=== PATIENT | male | born 1940 | race Caucasian/White ===

== ENCOUNTER → 2018-04-05 | Outpatient (CLI) | payer MEDICARE, BC ==
[~2018-04-05] MED LIST: ASPIR 8181 MG PO; ATORVASTATIN CA40 MG PO; COQ1050 MG PO; EFFEXOR 5050 MG/1 T1 PO; MAGNESIUM PO; NEURONTIN 300300 M1 PO; NORCO 5-325 TA1 EAC1 PO; OSTEO BI-FLEX1 EAC1 PO; PRINIVIL10 MG PO; PRO PO; TOPROL XL25 MG PO; VITAMIN B122500 MCG PO; VITAMIN D3400 UNIT PO; XANAX 0.25 MG0.25 MG PO; ZANTAC 150MG T150 MG PO; [UNRECOGNIZED DRUG - OTHER] PO; [UNRECOGNIZED DRUG - OTHER] PO
== END ==
LOC: M.ULTRA 13:44
DX: I82.411 Acute embolism and thrombosis of right femoral vein (principal); M79.89 Other specified soft tissue disorders

== ENCOUNTER 2021-01-31 05:49 | Emergency (ER) | payer OTHER, BC ==
[~2021-01-31] VITALS: Ht 185.4 cm; Wt 111.1 kg
[2021-01-31] MEDS ORDERED: NORVASC 2.5 MG2.5 M1 PO (06:10)
[2021-01-31] MEDS ORDERED: FLOMAX0.4 MG PO (06:11)
[2021-01-31] MEDS ORDERED: FISH OIL 1,0001 EAC9 PO (06:12)
[2021-01-31] MEDS ORDERED: GABAPENTIN600 M1 PO (06:12)
[2021-01-31] MEDS ORDERED: IMDUR 30 MG TAB30 M1 PO (06:13)
[2021-01-31] MEDS ORDERED: VITAMIN D31250 MCG PO (06:15)
[2021-01-31 06:39] LABS: URINE BILIRUBIN NEGATIVE (Negative); URINE BLOOD NEGATIVE (Negative); URINE CLARITY CLEAR; URINE COLOR YELLOW; URINE GLUCOSE-RANDOM NEGATIVE (Negative); URINE KETONES NEGATIVE (Negative); URINE LEUKOCYTES-REFLEX NEGATIVE (Negative); URINE NITRITE-REFLEX NEGATIVE (Negative); URINE PROTEIN NEGATIVE (Negative); URINE SPECIFIC GRAVITY >= 1.030 (1.005-1.030); URINE UROBILINOGEN 0.2 E.U./dl (0.2-1.0)
[2021-01-31 06:54] LABS: ABSOLUTE EOSINOPHILS 0.6 thou/uL (0.0-0.7); ABSOLUTE LYMPHOCYTES 1.7 thou/uL (0.8-5.3); ABSOLUTE MONOCYTES 0.7 thou/uL (0.0-1.2); ABSOLUTE NEUTROPHILS 4.1 thou/uL (1.6-8.1); BASOPHILS 0.6 %; EOSINOPHILS 8.8 %; HEMATOCRIT 39.9 % (42.0-52.0); HEMOGLOBIN 13.6 gm/dL (14.0-18.0); LYMPHOCYTES 23.9 %; MCH 34.8 pg (26.0-34.0); MCHC 34.2 g/dL (28.0-37.0); MCV 101.5 fL (80.0-100.0); MONOCYTES 9.9 %; MPV 9.7 fl. (7.2-11.1); NUCLEATED RBCS 0 /100WBC; PLATELET COUNT* 146 thou/uL (150-400); POLYS 56.8 %; RBC 3.93 mil/uL (4.50-6.00); RDW-CV 13.4 % (10.5-14.5); WBC 7.2 thou/uL (4.0-11.0)
[2021-01-31 07:26] LABS: CALCIUM 9.3 mg/dL (8.5-10.1); CREATININE 1.3 mg/dL (0.6-1.3); POTASSIUM 4.3 mmol/L (3.5-5.1)
[2021-01-31] MEDS ORDERED: FLEXERIL PO (08:30)
[2021-01-31] MEDS ORDERED: HYDROCODON-ACE1 EAC7 PO (08:30)
[2021-01-31 08:39] VITALS: BP 133/85
--- NOTE | 2021-02-01 11:44 | EKG ---
[place] [address] ELECTROCARDIOGRAM REPORT Name: CAPRICE PIZARRO Room: [facility]#: [id number] Admission: 01/31/21 Attend Phys: Discharge: 01/31/21 Date of : 44 Date of Service: 01/31/21612 Report #: [id number] THIS REPORT FOR: //name// [facility] ED Test Date: 2021-01-31 Test Time: 06:13:02 Pat Name: CAPRICE PIZARRO Department: Room: Gender: Overhead Distribution Engineer: KELECHI Smyth : 1940 Requested By: Lakeshia Live Order Number: [id number] MD: Herman Jones Measurements Intervals [place] Rate: 83 P: 42 [place]: 137 QRS: 7 QRSD: 112 T: 25 QT: 370 QTc: 435 Interpretive Statements Sinus rhythm Multiple premature complexes, supraven Incomplete right bundle branch block No previous ECG available for comparison Electronically Signed On 02-01-2021 11:43:52 CDT by Herman Jones [email or web address] <ELECTRONICALLY SIGNED> By: Herman Jones MD, [facility] 02/01/21 1143 0613 2 Herman Jones MD, [facility] /EPI
== END 2021-01-31 08:42 | disposition home or self-care (01) ==
LOC: M.ERS 05:49
PROVIDERS: Emergency Medicine
DX: S39.012A Strain of muscle, fascia and tendon of lower back, initial encounter (principal); X50.9XXA Other and unspecified overexertion or strenuous movements or postures, initial encounter; Y93.89 Activity, other specified; Y92.89 Other specified places as the place of occurrence of the external cause; Y99.8 Other external cause status

== ENCOUNTER 2021-07-03 12:27 | Emergency (ER) | payer OTHER, BC ==
[~2021-07-03] VITALS: Ht 185.4 cm; Wt 111.1 kg
[~2021-07-03 12:27] MED LIST changes: +FISH OIL 1,0001 EAC9 PO; +FLEXERIL PO; +FLOMAX0.4 MG PO; +GABAPENTIN600 M1 PO; +HYDROCODON-ACE1 EAC7 PO; +IMDUR 30 MG TAB30 M1 PO; +NORVASC 2.5 MG2.5 M1 PO; +VITAMIN D31250 MCG PO
[2021-07-03 12:30] VITALS: BP 143/80
--- NOTE | 2021-07-03 15:26 | EKG ---
[place] [address] ELECTROCARDIOGRAM REPORT Name: CAPRICE PIZARRO Room: [facility]#: [id number] Admission: 07/03/21 Attend Phys: Discharge: 07/03/21 Date of : 44 Date of Service: 07/03/21 1232 Report #: [id number] THIS REPORT FOR: //name// [facility] ED Test Date: 2021-07-03 Test Time: 12:32:27 Pat Name: CAPRICE PIZARRO Department: Room: Gender: Wheelchair Driver: ANJALI : 1940 Requested By: Rashid Conde Order Number: [id number] MD: Tevin Gross Measurements Intervals [place] Rate: 107 P: 36 [place]: 139 QRS: 35 QRSD: 108 T: 32 QT: 310 QTc: 414 Interpretive Statements Sinus rhythm with frequent and consecutive premature atrial contractions Possible left atrial enlargement Incomplete right bundle branch block Compared to ECG 01/31/2021 06:13:02 PACs more frequent Electronically Signed On 07-03-2021 15:26:09 SENIOR MOBILE APPLICATION DEVELOPER by Tevin Gross [email or web address] <ELECTRONICALLY SIGNED> By: Tevin Gross MD, FACC 07/03/21 1526 1232 1232 Tevin Gross MD, [facility] /EPI
== END 2021-07-03 14:11 | disposition left against medical advice (07) ==
LOC: M.ERS 12:27
DX: R06.02 Shortness of breath (principal); Z53.21 Procedure and treatment not carried out due to patient leaving prior to being seen by health care provider

== ENCOUNTER 2021-08-07 20:59 | Inpatient (IN) | payer OTHER ==
[~2021-08-07] VITALS: Ht 188 cm; Wt 111.1 kg
[~2021-08-07 20:59] MED LIST changes: +ADULT LOW DOSE81 MG PO; -ASPIR 8181 MG PO; -ATORVASTATIN CA40 MG PO; -EFFEXOR 5050 MG/1 T1 PO; +LIPITOR40 MG PO; +VENLAFAXINE HCL75 M1 PO; +VITAMIN D3125 MC2 PO; -VITAMIN D3400 UNIT PO
[2021-08-07 21:02] VITALS: BP 130/58
[2021-08-07] MEDS ORDERED: MAG GLYCINATE100 MG PO (21:12)
[2021-08-07 21:29] LABS: ABSOLUTE BASOPHILS 0.1 thou/uL (0.0-0.2); ABSOLUTE EOSINOPHILS 0.4 thou/uL (0.0-0.7); ABSOLUTE LYMPHOCYTES 1.6 thou/uL (0.8-5.3); ABSOLUTE MONOCYTES 0.6 thou/uL (0.0-1.2); ABSOLUTE NEUTROPHILS 4.8 thou/uL (1.6-8.1); BASOPHILS 0.7 %; EOSINOPHILS 5.9 %; HEMATOCRIT 41.3 % (42.0-52.0); HEMOGLOBIN 13.5 gm/dL (14.0-18.0); LYMPHOCYTES 21.4 %; MCH 33.5 pg (26.0-34.0); MCHC 32.8 g/dL (28.0-37.0); MCV 102.1 fL (80.0-100.0); MONOCYTES 7.9 %; MPV 9.5 fl. (7.2-11.1); NUCLEATED RBCS 0 /100WBC; PLATELET COUNT* 138 thou/uL (150-400); POLYS 64.1 %; RBC 4.05 mil/uL (4.50-6.00); RDW-CV 13.3 % (10.5-14.5); WBC 7.5 thou/uL (4.0-11.0)
[2021-08-07 21:39] LABS: CALCIUM 8.7 mg/dL (8.5-10.1); CREATININE 1.7 mg/dL (0.6-1.3); POTASSIUM 4.9 mmol/L (3.5-5.1)
[2021-08-07 21:50] LABS: ALBUMIN 3.1 g/dL (3.4-5.0); MAGNESIUM 2.1 mg/dL (1.8-2.4); TOTAL BILIRUBIN 0.3 mg/dL (<0.1-1.0); TOTAL PROTEIN 6.2 g/dL (6.4-8.2)
[2021-08-08 05:00] VITALS: BP 113/70
[2021-08-08 09:21] VITALS: BP 93/41
[2021-08-08 09:30] VITALS: BP 124/57
--- NOTE | 2021-08-08 10:16 | EKG ---
[place] [address] ELECTROCARDIOGRAM REPORT Name: CAPRICE PIZARRO Room: [place] [address] ADM IN [facility]#: [id number] Admission: 08/08/21 Attend Phys: Griffin Negrete, Discharge: Date of : 44 Date of Service: 08/07/212102 Report #: [id number] THIS REPORT FOR: //name// [facility] ED Test Date: 2021-08-07 Test Time: 21:03:49 Pat Name: CAPRICE PIZARRO Department: Room: [place] [address] Gender: M Chicken Boner: KORI : 1940 Requested By: Lakeshia Live Order Number: [id number] MD: Herman Jones Measurements Intervals [place] Rate: 116 P: 55 [place]: 129 QRS: 47 QRSD: 108 T: 50 QT: 331 QTc: 460 Interpretive Statements multifocal atrial tachycardia Probable left atrial enlargement RSR' in V1 or V2, right VCD or RVH Compared to ECG 07/03/2021 12:32:2 no change Electronically Signed On 08-08-2021 10:15:58 RUNNING SPECIALIST by Herman Jones [email or web address] <ELECTRONICALLY SIGNED> By: Herman Jones MD, FAC 08/08/21 1015 02 02 Herman Jones MD, FAC /EPI
[2021-08-08 12:33] VITALS: BP 111/51
[2021-08-08 15:57] VITALS: BP 109/55
--- NOTE | 2021-08-08 18:45 | NUR ---
PT HAVING A LOT OF RIGHT LEG PAIN. CALLED AND SPOKED TO DR. IBRAHIM AND HE STATED I AM THE ONLY TRAUMA ORTHO DR AND I CAME OVER TO SEE THE PT FOR DR. RAMÍREZ. I WILL TRY TO GET OVER THERE TOMORROW TO DO HER SURGERY BUT I AM SCHEDULED AT 3 [facility] HOSPITALS NOW. IF NOT MONDAY THEN MONDAY I CAN DO HER SURGERY, OR DR. RAMÍREZ CAN DO THE SURGERY. PT IS RECIEVING ONE UNIT OF BLOOD AT THIS TIME. PT HAS RAN A TEMP OFF AND ON ALL DAY FEVER BROKE WHEN STARTED THE BLOOD TRANSFUSION. WILL CONTINUE TO MONITOR PLAN OF CARE.
--- NOTE | 2021-08-08 18:54 | NUR ---
PT ADMITTED FOR TACHICADRIA AND HAVING AFIB THAT WAS DIAGNOSISED IN Jun. VITAL SIGNS ARE STABLE. AFEBRILE. PT HAS BEEN IN AFID SINCE HE WAS ADMITTED. WILL CONTINUE TO MONITOR PLAN OF CARE.
[2021-08-08 20:19] VITALS: BP 103/61
[2021-08-09 00:18] VITALS: BP 103/58
[2021-08-09 04:00] VITALS: BP 100/66
[2021-08-09 04:29] LABS: ABSOLUTE BASOPHILS 0.1 thou/uL (0.0-0.2); ABSOLUTE EOSINOPHILS 0.5 thou/uL (0.0-0.7); ABSOLUTE LYMPHOCYTES 2.2 thou/uL (0.8-5.3); ABSOLUTE MONOCYTES 0.7 thou/uL (0.0-1.2); ABSOLUTE NEUTROPHILS 3.9 thou/uL (1.6-8.1); BASOPHILS 0.8 %; EOSINOPHILS 7.2 %; HEMATOCRIT 39.2 % (42.0-52.0); HEMOGLOBIN 13.2 gm/dL (14.0-18.0); LYMPHOCYTES 29.5 %; MCH 33.9 pg (26.0-34.0); MCHC 33.7 g/dL (28.0-37.0); MCV 100.6 fL (80.0-100.0); MONOCYTES 9.1 %; NUCLEATED RBCS 0 /100WBC; PLATELET COUNT* 125 thou/uL (150-400); POLYS 53.4 %; RBC 3.89 mil/uL (4.50-6.00); RDW-CV 13.1 % (10.5-14.5); WBC 7.3 thou/uL (4.0-11.0)
[2021-08-09 04:40] LABS: CALCIUM 8.9 mg/dL (8.5-10.1); CREATININE 1.3 mg/dL (0.6-1.3)
[2021-08-09 08:00] VITALS: BP 114/64
--- NOTE | 2021-08-09 08:26 | NUR ---
PT IS ABLE TO COMMUNICATE HIS NEEDS TO STAFF EFFECTIVELY. CURRENT PAIN MEDICATION REGIMEN HAS BEEN ADEQUATE FOR CONTROLLING HIS PAIN UP TO 0700 THIS MORNING. PT ON A SOTALOL TRIAL; HAVING SOME TACHYARRYTHMIA AT TIMES; AWARE.
[2021-08-09 11:30] VITALS: BP 114/64
--- NOTE | 2021-08-09 13:14 | EKG ---
[place] [address] ELECTROCARDIOGRAM REPORT Name: CAPRICE PIZARRO Room: [address] IN [facility].#: [id number] Admission: 08/08/21 Attend Phys: Griffin Negrete, Discharge: Date of : 44 Date of Service: 08/08/21 0100 Report #: [id number] THIS REPORT FOR: //name// [facility] ED Test Date: 2021-08-08 Test Time: 01:00:44 Pat Name: CAPRICE PAULAEVE Department: Room: [facility] Gender: M Night Shift Manager: KORI : 1940 Requested By: Lakeshia Live Order Number: [id number] MD: Bolivar Boggs Measurements Intervals [place] Rate: 113 P: 53 [place]: 132 QRS: 22 QRSD: 117 T: 47 QT: 362 QTc: 497 Interpretive Statements Sinus rhythm with frequent and consecutively occurring PACs Right bundle branch block Compared to ECG 08/07/2021 21:03:49 Right bundle-branch block now present Sinus rhythm with frequent PACs persist Right ventricular hypertrophy no longer present Electronically Signed On 08-09-2021 13:14:04 TANK CAR INSPECTOR by Bolivar Boggs [email or web address] <ELECTRONICALLY SIGNED> By: Bolivar Boggs MD, [facility] 08/09/21 1314 Bolivar Boggs MD, [facility] /EPI
--- NOTE | 2021-08-09 13:21 | EKG ---
[place] [address] ELECTROCARDIOGRAM REPORT Name: CAPRICE PIZARRO Room: [address] ADM IN ..#: [id number] Admission: 08/08/21 Attend Phys: Griffin Negrete, Discharge: Date of : 44 Date of Service: 08/09/21 1005 Report #: [id number] THIS REPORT FOR: //name// [facility] Test Date: 2021-08-09 Test Time: 10:05:01 Pat Name: CAPRICE IPZARRO Department: Room: [address] Gender: M Cube Machine Tender: : 1940 Requested By: Kusum Andrade Order Number: [id number] MD: Bolivar Boggs Measurements Intervals [place] Rate: 110 P: 45 [place]: 139 QRS: 8 QRSD: 117 T: 34 QT: 371 QTc: 503 Interpretive Statements Sinus tachycardia Frequent and consecutively occurring PACs Right bundle branch block Compared to ECG 08/08/2021 01:00:44 Atrial ectopy persists Electronically Signed On 08-09-2021 13:21:27 CROSSBOW MAKER by Bolivar Boggs [email or web address] <ELECTRONICALLY SIGNED> By: Bolivar Boggs MD, [facility] 08/09/21 1321 1005 1005 Bolivar Boggs MD, [facility] /EPI
[2021-08-09 15:27] VITALS: BP 99/53
--- NOTE | 2021-08-09 15:41 | 2DMMODE ---
[place] [address] 2 D/M-MODE ECHOCARDIOGRAM Name: JUAREZTAHIRA JOSUECARMELINA Porter Room: [address] IN [place]#: [id number] Admission: 08/08/21 Attend Phys: Griffin Negrete, Discharge: Date of : 44 Date of Service: 08/09/21 1541 Report #: [id number] THIS REPORT FOR: cc: Javi Berrios MD, Dean L. MD Holkins, John M. MD [facility] ~ APPROVED REPORT Study performed: 08/09/2021 14:50:39 EXAM: Comprehensive 2D, Doppler, and color-flow Echocardiogram Patient Location: In-Patient Room #: [facility] Status: routine BSA: 2.35 HR: 69 bpm BP: 100/66 mmHg Rhythm: NSR Other Information Study Quality: Good Indications Atrial Fibrillation 2D Dimensions IVSd: 11.53 (7-11mm) LVOT Diam: 22.11 (18-24mm) LVDd: 51.82 mm PWd: 10.61 (7-11mm) Ascending Ao: 35.26 (22-36mm) LVDs: 35.29 (25-40mm) Aortic Root: 34.79 mm Volumes Left Atrial Volume (Systole) LA ESV Index: 34.50 mL/m2 Aortic Valve AoV Peak Devaughn.: 1.14 m/s AO Peak Gr.: 5.22 mmHg LVOT Max P.45 mmHg AO Mean Gr.: 3.12 mmHg LVOT Mean P.20 mmHg LVOT Max V: 0.78 m/s AO V2 VTI: 25.59 cm LVOT Mean V: 0.51 m/s JOHNATHON (VTI): 2.38 cm2 LVOT V1 VTI: 15.89 [place] [address] 2 D/M-MODE ECHOCARDIOGRAM Name: CAPRICE PIZARRO Room: [address] IN [facility]#: [id number] Admission: 08/08/21 Attend Phys: Griffin Negrete, Discharge: Date of : 44 Date of Service: 08/09/21 1541 Report #: [id number] Mitral Valve E/A Ratio: 1.65 MV Decel. Time: 228.60 ms MV E Max Devaughn.: 0.72 m/s MV PHT: 66.29 ms MVA (PHT): 3.32 cm2 TDI E/Lateral E': 7.20 E/Medial E': 6.55 Medial E' Devaughn.: 0.11 m/s Lateral E' Devaughn.: 0.10 m/s Pulmonary Valve PV Peak Devaughn.: 0.81 m/s PV Peak Gr.: 2.64 mmHg Left Ventricle The left ventricle is normal size. There is normal LV segmental wall motion. There is normal left ventricular wall thickness. Left ventricular systolic function is normal. The left ventricular ejection fraction is within the normal range. LVEF is 55%. The left ventricular diastolic function is normal. Right Ventricle The right ventricle is normal size. The right ventricular systolic function is normal. Atria The left atrium size is normal. The right atrium size is normal. Aortic Valve Mild aortic valve sclerosis. No aortic regurgitation is present. There is no aortic valvular stenosis. Mitral Valve The mitral valve is normal in structure. Mild mitral regurgitation. No evidence of mitral valve stenosis. Tricuspid Valve The tricuspid valve is normal in structure. Trace tricuspid regurgitation. Unable to assess PA pressure. Pulmonic Valve The pulmonary valve is normal in structure. There is no pulmonic valvular [place] [address] 2 D/M-MODE ECHOCARDIOGRAM Name: CAPRICE PIZARRO Room: [address] IN [facility]#: [id number] Admission: 08/08/21 Attend Phys: Griffin Negrete, Discharge: Date of : 44 Date of Service: 08/09/21 1541 Report #: [id number] Great Vessels The aortic root is normal in size. IVC is normal in size and collapses >50% with inspiration. Pericardium There is no pericardial effusion. <Conclusion> The left ventricle is normal size. There is normal left ventricular wall thickness. Left ventricular systolic function is normal. The left ventricular ejection fraction is within the normal range. LVEF is 55%. The left ventricular diastolic function is normal. The right ventricle is normal size. The left atrium size is normal. The right atrium size is normal. Mild aortic valve sclerosis. No aortic regurgitation is present. There is no aortic valvular stenosis. The mitral valve is normal in structure. Mild mitral regurgitation. The tricuspid valve is normal in structure. IVC is normal in size and collapses >50% with inspiration. There is no pericardial effusion. There is normal LV segmental wall motion. <ELECTRONICALLY SIGNED> By: Bolivar Boggs MD, FACC 08/09/21 1541 [id number] Bolivar Boggs MD, FACC /INF
--- NOTE | 2021-08-09 16:05 | NUR ---
Patient is alert and oriented x 4, pleasant and cooperative with cares and able to make his needs and wants known. He is contintent of B&B and up in room ad petar. LCTA, respirations even and non labored, BS+x4, no edema noted to extremeties. C/O headache this shift that was relieved with PRN Tylenol. Medications and treatments given per physcian orders. Will continue with the plan of care.
--- NOTE | 2021-08-09 17:14 | NUR ---
CM ASSESSMENT: PT A&P, INDEPENDDENT WITH ADL'S, AND ACTIVE. PT RESIDES AT HOME WITH SPOUSE. PT USES BIPAP AT [facility]. NO OTHER DME. PT HAS 0 HX OF HH OR SNF. NO CM D.C PLANNIGN NEEDS ANTICIPATED AT THIS TIME. CM WILL REMAIN AVAILABLE TO ASSIST AND FOLLOW NEEDED.
--- NOTE | 2021-08-09 18:34 | NUR ---
THIS RN AGREES WITH THE CHARTING COMPLTED BY PETER Boston LPN ON 08/09/21
[2021-08-09 20:15] VITALS: BP 96/48
--- NOTE | 2021-08-09 21:29 | NUR ---
ASSUMED PT CARE AT 1900. CARDIAC MONITORING SINUS RHYTHM WITH PACS. PT VOICES NO COMPLAINTS AT THIS TIME. PT IS WEARING 1/2L OF OXYGEN FOR COMFORT ONLY. PT UP AD [place]. STATES HE IS READY TO GO HOME TOMORROW. CALL LIGHT WITHIN REACH. WILL CONTINUE TO MONITOR.
[2021-08-10] VITALS: BP 123/70
[2021-08-10 04:00] VITALS: BP 103/62
[2021-08-10 05:28] LABS: CALCIUM 8.7 mg/dL (8.5-10.1); CREATININE 1.2 mg/dL (0.6-1.3); POTASSIUM 4.3 mmol/L (3.5-5.1)
[2021-08-10] MEDS ORDERED: SORINE 80 MG TA80 M1 PO (06:40)
[2021-08-10] MEDS ORDERED: XARELTO20 MG PO (06:40)
--- NOTE | 2021-08-10 07:00 | NUR ---
PT SLEPT WELL THROUGHOUT NIGHT. CARDIAC TRACING SINUS RHYTHM WITH PACS. D/C ORDERS ENTER FOR TODAY. CALL LIGHT WITHIN REACH.
[2021-08-10 09:00] VITALS: BP 117/64
--- NOTE | 2021-08-10 10:06 | EKG ---
[place] [address] ELECTROCARDIOGRAM REPORT Name: CAPRICE PIZARRO Room: [address] ADM IN .R.#: [id number] Admission: 08/08/21 Attend Phys: Griffin Negrete, Discharge: Date of : 44 Date of Service: 08/10/2130 Report #: [id number] THIS REPORT FOR: //name// [facility] Test Date: 2021-08-10 Test Time: 06:30:57 Pat Name: CAPRICE PIZARRO Department: Room: [address] Gender: M Cytogenetics Technologist: ARCADIO : 1940 Requested By: Kusum Andrade Order Number: [id number] Olivia MD: Bolivar Boggs Measurements Intervals [place] Rate: 103 P: 40 [place]: 138 QRS: 18 QRSD: 115 T: 31 QT: 391 QTc: 512 Interpretive Statements Sinus tachycardia PACs with aberrancy are noted Incomplete right bundle branch block Compared to ECG 08/09/2021 10:05:01 PACs persist Incomplete right bundle-branch block now present Electronically Signed On 08-10-2021 10:06:33 MARKETING DEVELOPMENT MANAGER by Bolivar Boggs [email or web address] <ELECTRONICALLY SIGNED> By: Bolivar Boggs MD, FACC 08/10/21 1006 9 Bolivar Boggs MD, FAC /EPI
--- NOTE | 2021-08-10 12:58 | NUR ---
PLAN OF CARE: PLAN FOR THE PT TO D/C HOME TODAY WITH SELF-CARE. NO CM D/C PLANNING NEEDS ANTICIPATED. CM WILL REMAIN AVAILABLE TO ASSIST AND FOLLOW NEEDED.
[2021-08-10 13:00] VITALS: BP 148/79
[2021-08-10 15:54] VITALS: BP 148/79
--- NOTE | 2021-08-10 16:07 | NUR ---
ASSUMED PT CARE AT 0730. PT IS PLEASANTLY A&O X4 PLEASANT AND RESPONDS READILY. ASSESSMENT COMPLETED, PT VOICES NO CONCERNS ONLY THAT HE IS REQUESTING A RAPID COVID BEFORE GOING HOME TO . DR. DAY. NEW ORDER TO DISCHARGE PT TO HOME, ORDERS REVIEWED WITH PT. MEDICATIONS ADMINISTERED ORDERED. IV DC'D AND HEART MONITOR REMOVED. SPOUSE HERE TO TRANSPORT PT TO HOME AT 1600.
== END 2021-08-10 16:03 | disposition home or self-care (01) | DRG 309 ==
LOC: M.ERS 20:59 → M.TBA-ER 08-08 02:30 → M.2W 08-08 09:29 → M.TBA-ER 08-08 09:29 → M.2W 08-08 10:27
PROVIDERS: Emergency Medicine; Registered Nurse; ADMIT Internal Medicine; ATTEND Internal Medicine
DX: I48.0 Paroxysmal atrial fibrillation (principal); N17.9 Acute kidney failure, unspecified; D68.59 Other primary thrombophilia; E66.9 Obesity, unspecified; Z68.31 Body mass index [BMI] 31.0-31.9, adult; F32.A Depression, unspecified; N18.9 Chronic kidney disease, unspecified; Z20.822 Contact with and (suspected) exposure to COVID-19; I25.10 Atherosclerotic heart disease of native coronary artery without angina pectoris; G47.33 Obstructive sleep apnea (adult) (pediatric); Z79.01 Long term (current) use of anticoagulants; E78.5 Hyperlipidemia, unspecified; Z95.5 Presence of coronary angioplasty implant and graft